=== PATIENT | male | born 1955 | race Caucasian/White ===

== ENCOUNTER → 2017-08-15 | Outpatient (CLI) | payer BC ==
--- NOTE | 2017-08-15 14:37 | Diagnostic Imaging Report ---
PROCEDURE:X-RAY LEFT FOOT, COMPLETE COMPARISON:None. INDICATIONS:LEFT FOOT PAIN FINDINGS: There are no fractures, dislocations, lytic or blastic lesions. The bones are well-mineralized. The soft-tissues are unremarkable. Small plantar calcaneal enthesophyte. CONCLUSION: No acute fracture or dislocation of the left foot. Dictated by: Mynor Anderson M.D. on 08/15/2017 at 14:40 Electronically approved by: Mynor Anderson M.D. on 08/15/2017 at 14:40
== END ==
LOC: RAD 13:40
PROVIDERS: ATTEND Internal Medicine
DX: M79.672 Pain in left foot (principal)